=== PATIENT | female | born 1980 | race African-American/Black ===

== ENCOUNTER 2020-07-27 14:45 | Emergency (ER) | payer OTHER ==
[~2020-07-27] VITALS: Ht 160 cm; Wt 62.3 kg
[2020-07-27 14:58] VITALS: BP 113/70; TEMP 97.4
[2020-07-27] MEDS ORDERED: LEVOXYL0.1 MG PO (15:10)
[2020-07-27 15:48] VITALS: PULSE 65
== END 2020-07-27 15:48 | disposition home or self-care (01) ==
LOC: COL.ER 14:45
DX: Z71.1 Person with feared health complaint in whom no diagnosis is made (principal); E03.9 Hypothyroidism, unspecified; F17.200 Nicotine dependence, unspecified, uncomplicated; Z79.890 Hormone replacement therapy

== ENCOUNTER → 2020-12-17 | Outpatient (CLI) | payer BC ==
[~2020-12-17] MED LIST: LEVOXYL0.1 MG PO
== END ==
LOC: COL.RAD 12:00
DX: Z00.01 Encounter for general adult medical examination with abnormal findings (principal)

== ENCOUNTER → 2021-12-04 | Outpatient (CLI) | payer BC | LOC: COL.RAD 11:23 | DX: D18.03 Hemangioma of intra-abdominal structures (principal); R63.4 Abnormal weight loss; Z80.0 Family history of malignant neoplasm of digestive organs | CPT/HCPCS: Q9967 ==